=== PATIENT | male | born 1995 | race Caucasian/White ===

== ENCOUNTER 2020-01-03 22:29 | Emergency (ER) | payer BC ==
--- NOTE | 2020-01-03 22:49 | RAD ---
2 view chest: [01/03/2020] Comparison:None available HISTORY: Cough FINDINGS: Heart and mediastinal contours are grossly unremarkable. No pneumothorax or pleural fluid. No focal consolidation or alveolar edema. There is mild elevation of the right hemidiaphragm. IMPRESSION: No acute findings.
== END 2020-01-04 00:11 | disposition home or self-care (01) ==
LOC: ERS 22:29
DX: J06.9 Acute upper respiratory infection, unspecified (principal)
CPT/HCPCS: 71046; 87804